=== PATIENT | male | born 1950 | race Caucasian/White ===

== ENCOUNTER 2016-12-26 07:02 | Day surgery (SDC) | payer MEDICARE, OTHER ==
[2016-12-21 16:46] VITALS: BMI 28.8
[2016-12-26] MEDS ORDERED: TETRACAINE 0.5% OPHTH SOLN 2 ML BOTTLE ONE (07:14)
[2016-12-26] MEDS ORDERED: BUPIVACAINE HCL/PF 0.5% (5MG/ML) 10 ML VIAL ONE (07:14)
[2016-12-26] MEDS ORDERED: BSS (NA/CA/MG/K) BALANCED SALT SOLUTION OPHTH SOLN 15 ML BOTTLE ONE (07:14)
[2016-12-26] MEDS ORDERED: BACITRACIN 3.5 GM OPTHALMIC OINT TUBE ONE (07:14)
[2016-12-26] MEDS ORDERED: LIDOCAINE 1%/EPI 1:100000 (20 ML MULTI DOSE VIAL) ONE (07:15)
[2016-12-26] MEDS ORDERED: POVIDONE-IODINE 5% OPHTHALMIC PREP 30 ML SOLUTION ONE (07:33)
[2016-12-26] MEDS ORDERED: MIDAZOLAM HCL 2 MG/2 ML SINGLE DOSE VIAL ONE (08:02)
[2016-12-26] MEDS ORDERED: SUCCINYLCHOLINE CHLORIDE 200 MG/10 ML VIAL ONE (08:14)
[2016-12-26] MEDS ORDERED: PROPOFOL 20 ML ONE ×2 (08:14)
[2016-12-26] MEDS ORDERED: ePHEDrine SULFATE 50 MG/1 ML AMPULE ONE (08:35)
[2016-12-26] MEDS ORDERED: ACETAMINOPHEN 500 MG TABLET (FP) PO PRN (09:10)
[2016-12-26] MEDS ORDERED: ONDANSETRON 4 MG/2 ML VIAL IVPUSH PRN (09:20)
[2016-12-26] MEDS ORDERED: PROMETHAZINE HCL 25 MG/1 ML VIAL IVPUSH PRN (09:20)
[2016-12-26] MEDS ORDERED: LACTATED RINGERS SOLUTION 1,000 ML IV SCH (09:30)
[2016-12-26 10:56] VITALS: TEMP 97.6
[2016-12-26] MEDS ORDERED: ACETAMINOPHEN 500 MG TABLET (FP) ONE (10:57)
[2016-12-26 11:45] VITALS: BP 128/76; PULSE 66
--- NOTE | 2016-12-26 12:15 | OP ---
DATE OF OPERATION: 12/26/2016 PREOPERATIVE DIAGNOSIS: Irritation, left eye with a floppy left upper eyelid. POSTOPERATIVE DIAGNOSIS: Irritation, left eye with a floppy left upper eyelid. PROCEDURE: 1. Full-thickness wedge resection, medial left upper eyelid with repair. 2. Lateral tarsal strip, left upper lid. SURGEON: Caio Hurtado MD ANESTHESIA: LMA. COMPLICATIONS: None. ESTIMATED BLOOD LOSS: 2-3 mL DESCRIPTION OF OPERATION: Patient brought to the operating room and placed on the operating room table. Vital signs were monitored by Anesthesia. Tetracaine was placed in both eyes. Timeout was performed. A vertical line was marked in the medial portion of the eyelid where the proposed wedge resection was going to be taken at at the lateral canthus, and a 50/50 mixture of 2% Xylocaine to 1:100,000 epinephrine and 0.5% Marcaine was then injected in the medial portion of the eyelid and at the lateral canthus down to periosteum, and the lateral third of the upper and lower lids for a total of 3 mL. Massage applied for hemostasis. Patient was prepped and draped in the usual sterile fashion, exposing both eyes. The left eye was closed. The following procedure was performed. A vertical incision was made through the full-thickness eyelid nasally at the junction of the nasal and next quarter of the eyelid, and then, the lid was overlapped and a wedge resection was performed, taking out a full-thickness pentagonal wedge. This was repaired with three 6-0 silk sutures, one through the anterior lash line, one through the posterior mucocutaneous junction in a far-far, near-near vertical mattress suture through the iverson line, creating a poker. These were lifted inferiorly and secured with a hemostat. Tarsal plate was then anastomosed with 3 partial-thickness 6-0 Vicryl sutures, anastomosing the tarsal plates. The lid was everted, demonstrating no penetration of the sutures. Antibiotic irrigation was used throughout the case. The muscle layer was closed with 6-0 chromic, and the skin was closed with interrupted 6-0 plain suture in plastics technique. The margins superonasally and secured to the skin with a single 6-0 silk suture. Attention was turned to the lateral canthus. A lateral canthal incision was made with a 15 blade through skin and subcutaneous tissue, and a lateral tarsal strip was developed at the lateral canthus. Double-arm 5-0 Prolene was used to secure the lateral tarsus, and this was reinforced with a 6-0 Vicryl lasso suture. The Prolene was then passed through the periosteum at the orbital rim at the junction with the inferior marga and lateral canthal tendon with appropriate tension on the eyelids so that there was a slight ability to distract the lid from globe but no more excess laxity. The Prolene was tied. The muscle layers were then closed with 5-0 chromic and the skin with interrupted 6-0 plain suture. Prior to closing the muscle and the skin and prior to tying the Prolene, the lateral canthal angles were formed with a buried 5-0 chromic through the iverson line of the upper lid and iverson line of the lower lid and with the knot being buried in the lateral canthus. The muscle and skin were then closed. Bacitracin ointment was placed on the lateral canthus and on the nasal eyelid, and the patient was taken to the recovery room in stable condition. Zuleima [id number]
--- NOTE | 2016-12-28 12:38 | PATH ---
Surgical Pathology Report Patient Name: LISA TANNER [facility]. Rec. #: [id number] /Age/Gender: 1950 (Age: 66) / M Account: [id number] Location: [facility] Taken: 12/26/2016 Received: 12/26/2016 Reported: 12/28/2016 Physicians: Caio Hurtado Specimen(s) Received SKIN AND TISSUE LEFT UPPER EYELID Clinical History Ectropion left upper eyelid Final Diagnosis LEFT UPPER EYELID, PARTIAL RESECTION: CONJUNCTIVAL TISSUE WITH CHRONIC INFLAMMATION, WITH ATTACHED SKELETAL MUSCLE AND SKIN WITH NON-SPECIFIC DERMAL EDEMA. Electronically Signed Garett Mcgovern M.D. Gross Description Received in formalin labeled "skin and tissue left upper eyelid," is a 0.8 x 0.6 cm asencio, irregular, unoriented skin shave. The epidermal surface displays a 0.5 x 0.4 cm asencio, polypoid lesion. This base is inked green and the specimen is serially sectioned. The specimen is entirely submitted in one cassette. 12/27/201612/27/2016
== END 2016-12-26 11:49 | disposition home or self-care (01) ==
LOC: FASU 07:02
PROVIDERS: ATTEND Ophthalmology
PROC: 08BP0ZZ Excision of Left Upper Eyelid, Open Approach (ICD-10-PCS; principal; 2016-12-26 08:26)
DX: H02.89 Other specified disorders of eyelid (principal); H57.8 Other specified disorders of eye and adnexa
CPT/HCPCS: 88304-TC; 94760

== ENCOUNTER 2017-08-15 10:10 | Day surgery (SDC) | payer MEDICARE, OTHER ==
[2017-08-14 19:42] VITALS: BMI 29.2
[2017-08-15 11:13] VITALS: TEMP 97.5
[2017-08-15 16:15] VITALS: BP 124/76; PULSE 62
--- NOTE | 2017-08-21 14:13 | PATH ---
Surgical Pathology Report Patient Name: LISA TANNER [facility]. Rec. #: [id number] /Age/Gender: 1950 (Age: 66) / M Account: [id number] Location: RADIOLOGY Taken: 08/15/2017 Received: 08/15/2017 Reported: 08/21/2017 Physicians: Freedom Dutton M.D. Fabrice Keith M.D. Specimen(s) Received LIVER BIOPSY Clinical History 66-year-old male with abnormal LFTs and elevated ??? Final Diagnosis Liver, core biopsy: Moderate steatohepatitis with diffuse steatosis (80%), pericellular inflammation, and ballooning degeneration of hepatocytes, see comment. Trichrome stain is understained and shows at least perivenular, pericellular, and periportal fibrosis with focal fibrous septa (stage 2/4). Reticulin stain shows an intact sinusoidal architecture. Iron stain is negative for siderosis. PAS with diastase stain is negative for owrqn-1-ghzxbiwolct globules. Negative for cholestasis, cholangitis/bile duct injury, granulomas, or malignancy. COMMENT: The biopsy shows steatohepatitis. Few portal tracts show a mild mixed inflammatory infiltrate comprised of mainly lymphocytes with few scattered plasma cells and eosinophils. The patient is noted to have an elevated anti-smooth muscle antibody. Significant lymphoplasmacytic interface activity typically seen in autoimmune hepatitis is not present in this sample. The portal inflammation may be due to the fatty liver disease or other causes such as drug/toxin-induced injury and less likely immune-mediated injury. The patient was noted to be previously on a statin. Statins are known to be associated with elevated autoantibodies such as anti-smooth muscle antibody. The overall findings in this biopsy sample do not favor a diagnosis of autoimmune hepatitis. Steatohepatitis may be associated with diabetes mellitus, metabolic syndromes, obesity, medications, alcohol use, etc. Clinical correlation recommended. Case discussed with Dr. Keith. Case sent for consultation to Dr. Marisol Navarro from [place], [place] ([id number]), the diagnosis above reflects her opinion. See complete report ([id number]) from [place], [place] for additional details. Electronically Signed Makenna Stearns M.D. Gross Description Received in formalin labeled "liver biopsy," are 2 asencio, cylindrical portions of soft tissue averaging 1.6 cm in length and 0.1 cm in diameter. The specimens are submitted in toto in one cassette. 08/15/201708/15/2017
== END 2017-08-15 16:00 | disposition home or self-care (01) ==
LOC: JRADIR 10:10
PROVIDERS: ATTEND Internal Medicine Gastroenterology
PROC: 0FB03ZX Excision of Liver, Percutaneous Approach, Diagnostic (ICD-10-PCS; principal; 2017-08-15)
DX: R94.5 Abnormal results of liver function studies (principal)
CPT/HCPCS: 76942-TC; 87899; 88305-TC; 88313-TC

== ENCOUNTER 2017-12-25 06:41 | Day surgery (SDC) | payer MEDICARE, OTHER ==
[2017-12-24 14:57] VITALS: BMI 29.2
[2017-12-25] MEDS ORDERED: PROPOFOL 20 ML ONE ×2 (07:25)
[2017-12-25] MEDS ORDERED: ROCURONIUM BROMIDE 50 MG/5 ML VIAL ONE (07:26)
[2017-12-25] MEDS ORDERED: MIDAZOLAM HCL 2 MG/2 ML SINGLE DOSE VIAL ONE (07:26)
[2017-12-25] MEDS ORDERED: SUCCINYLCHOLINE CHLORIDE 200 MG/10 ML VIAL ONE (07:29)
[2017-12-25] MEDS ORDERED: DEXAMETHASONE SOD PHOSPHATE 4 MG/1 ML VIAL ONE (07:29)
[2017-12-25] MEDS ORDERED: COCAINE HCL 4% TOPICAL SOLUTION 4 ML BOTTLE TP ONE ×2 (07:39→08:24)
[2017-12-25] MEDS ORDERED: BACITRACIN 15 GM TUBE TOPICAL OINTMENT ONE (07:41)
--- NOTE | 2017-12-25 08:03 | HP ---
Admitting History and Physical - Primary Care Physician PCP: Raymond - Admission Chief Complaint: Nasal blockage History of Present Illness: Nasal polyps refractory to meds, for surgery History Source: Patient, Medical Record Limitations to Obtaining History: No Limitations - Past Medical History Cardiovascular: Yes: Other (cholesterol) Gastrointestinal: Yes: GERD Renal/: Yes: BPH Musculoskeletal: Yes: Osteoarthritis - Smoking History Smoking history: Never smoked Have you smoked in the past 12 months: No - Alcohol/Substance Use Hx Alcohol Use: No Home Medications - Allergies Allergies/Adverse Reactions: Allergies Allergy/AdvReac Type Severity Reaction Status Date / Time oxycodone Allergy Verified 12/25/17 07:23 - Home Medications Home Medications: Ambulatory Orders Tamsulosin HCl 0.4 mg PO BID 04/27/15 Gabapentin 400 mg PO DAILY 12/26/16 Aspirin [ASA -] 81 mg PO DAILY 12/24/17 Atorvastatin Ca [Lipitor] 40 mg PO HS 12/24/17 Physical Examination Vital Signs: Vital Signs Temperature 98.2 F 12/25/17 07:22 Pulse Rate 67 12/25/17 07:22 Respiratory Rate 20 12/25/17 07:22 Blood Pressure 121/76 12/25/17 07:22 O2 Sat by Pulse Oximetry (%) 99 12/25/17 07:19 Constitutional: Yes: Well Nourished, No Distress Eyes: Yes: WNL, Conjunctiva Clear HENT: Yes: WNL, Atraumatic Neck: Yes: WNL, Supple Cardiovascular: Yes: WNL Respiratory: Yes: WNL Gastrointestinal: Yes: WNL Musculoskeletal: Yes: WNL Extremities: Yes: WNL Assessment/Plan Nasal polyp and chronic sinusitis for endoscopic sinus surgery
[2017-12-25] MEDS ORDERED: ceFAZolin SODIUM 1 GM VIAL ONE (08:24)
[2017-12-25] MEDS ORDERED: LIDOCAINE 1%/EPI 1:100000 (50 ML MULTI DOSE VIAL) INF ONE (08:24)
[2017-12-25] MEDS ORDERED: ePHEDrine SULFATE 50 MG/1 ML AMPULE ONE (08:27)
[2017-12-25] MEDS ORDERED: PHENYLEPHRINE HCL 10 MG/1 ML SINGLE DOSE VIAL ONE (08:34)
[2017-12-25] MEDS ORDERED: ceFAZolin SODIUM 1 GM VIAL IVPB ONE (08:36)
[2017-12-25] MEDS ORDERED: NEOSTIGMINE METHYLSULFATE 0.5 MG/ML - 10 ML MDV ONE (08:50)
[2017-12-25] MEDS ORDERED: GLYCOPYRROLATE 0.2 MG/1 ML VIAL ONE (08:50)
[2017-12-25] MEDS ORDERED: ACETAMINOPHEN 325 MG TABLET (FP) PO PRN (09:45)
[2017-12-25] MEDS ORDERED: LACTATED RINGERS SOLUTION 1,000 ML IV SCH (09:45)
[2017-12-25] MEDS ORDERED: oxyCODONE HCL 5 MG TABLET PO PRN (09:45)
[2017-12-25] MEDS ORDERED: ONDANSETRON 4 MG/2 ML VIAL IVPUSH PRN (09:45)
[2017-12-25 10:42] VITALS: TEMP 97.5
[2017-12-25] MEDS ORDERED: oxyCODONE HCL 5 MG TABLET ONE (11:09)
[2017-12-25] MEDS ORDERED: oxyCODONE HCL 5 MG TABLET PO ONE (11:10)
[2017-12-25 16:02] VITALS: BP 125/79; PULSE 90
--- NOTE | 2018-01-01 10:37 | PATH ---
Surgical Pathology Report Patient Name: LISA TANNER [facility]. Rec. #: [id number] /Age/Gender: 1950 (Age: 67) / M Account: [id number] Location: [facility] SURG[facility] Taken: 12/25/2017 Received: 12/25/2017 Reported: 01/01/2018 Physicians: Bienvenido Young M.D. Specimen(s) Received RIGHT NASAL POLYP Clinical History Chronic sinusitis, hypertrophic nasal turbinates Final Diagnosis NASAL POLYP, RIGHT, MAXILLARY ANTROSTOMY AND TISSUE REMOVAL: POLYPOID NASAL MUCOSA WITH ACUTE AND CHRONIC INFLAMMATION, AND HISTIOCYTIC PROLIFERATION. SEE COMMENT. Comment: Histologic sections show polypoid nasal mucosa with mixed acute and chronic inflammatory infiltrate and prominent histiocytic proliferation. Within these vacuolated histiocytes, there are suggestion of bacteria which appear gram (). PAS special stain show rare weak eosinophilic inclusions, but negative for fungal forms. Special stain for acid fast bacilli (AFB) stain is negative. S100 immunohistochemical stain utilized to evaluate this case. Findings are non-specific, and raise the possibility of a granulomatous process wherein Rhinoscleroma is a consideration. Suggest clinical and microbiology studies correlation. Immunohistochemical and special stains performed and interpreted at [facility]. Findings discussed with Dr. Richardson. Electronically Signed Clara Madrid M.D. Gross Description Received in formalin labeled "right nasal polyp," are 3 asencio, polypoid portions of soft tissue ranging from 2.0 x 0.4 x 0.1 cm to 2.3 x 0.9 x 0.2 cm. The specimens are submitted in toto in one cassette. 12/25/201712/25/2017
--- NOTE | 2018-01-01 12:08 | OP ---
DATE OF OPERATION: 12/25/2017 PREOPERATIVE DIAGNOSIS: Chronic sinusitis, nasal polyposis, turbinate hypertrophy. POSTOPERATIVE DIAGNOSIS: Chronic sinusitis, nasal polyposis, turbinate hypertrophy. INDICATIONS FOR THE PROCEDURE: This is a 67-year-old male with history of nasal polyposis refractory to medical treatment including antibiotics, steroids, and sprays. He has a fairly large polyp in the right nasal cavity noted on CT scan and physical examination. PROCEDURE: Bilateral inferior turbinate outfracture and cautery, right-sided anterior ethmoidectomy, maxillary antrostomy and tissue removal from the right side and left, balloon maxillary antrostomy and sinus navigation. SURGEON: Bienvenido Young MD ANESTHESIA: General. PROCEDURE FOLLOWS: Patient was brought to the operating room and placed under general anesthesia. Then, 4% cocaine pledgets were placed into both nostrils, and the nose decongested with the Cottonoids. Prior to the beginning of the injection, a [employer] Sinus Navigation Tracker was placed in the forehead and the tracker device was calibrated. An injection of 1% lidocaine with 1:100,000 epinephrine was injected into the lateral nasal wall, inferior turbinates, and middle turbinate, and partially into the polyp itself. The nose was examined using a 0-degree endoscope. The polyp appeared to originating from the middle meatus posteriorly to the choanae. There was some mild septal deviation, which did not obstruct the view of the middle meatus approach on either side. Using upbiting forceps, portions of the polyp were removed and sent to Pathology. The polyp was debrided using a straight Medtronic guided microdebrider. The polyp was followed into the middle meatus and its attachment on the ethmoid was removed using the microdebrider which entered the ethmoid bulla posteriorly but not past the ground lamella. The polyp was followed into the ostia. The polyp seemed to be based medially in the maxillary sinus. Using the microdebrider along the posterior portion of the ostia, the rest of the polyp was removed. The Cottonoid was then placed into the ethmoid cavity, and the other side was examined. The Medtronic-guided balloon was placed into the middle meatus and into the ostia after medializing the middle turbinate with a [place] elevator. Two separate balloon dilatations were performed of the left maxillary ostia. The inferior turbinates were then outfractured using a long needle speculum first on the left side, then, the right side, then, an Elmed bipolar turbinate cautery was used to cauterize the mucosa of the inferior turbinate on both sides, first on the left with 3 passes, and then, the right with 3 passes. The right maxillary ostia and area of the anterior ethmoid were packed with NasoPore standard packing with Bacitracin. The patient was then extubated in the operating room and brought to the recovery room in stable condition. Zuleima [id number]
== END 2017-12-25 14:30 | disposition home or self-care (01) ==
LOC: JASU-SURG 06:41
PROVIDERS: ATTEND Otolaryngology
PROC: 8E09XBZ Computer Assisted Procedure of Head and Neck Region (ICD-10-PCS; 2017-12-25)
PROC: 09DU4ZZ Extraction of Right Ethmoid Sinus, Percutaneous Endoscopic Approach (ICD-10-PCS; 2017-12-25)
PROC: 8E09XBZ Computer Assisted Procedure of Head and Neck Region (ICD-10-PCS; principal; 2017-12-25 08:00)
PROC: 099Q4ZZ Drainage of Right Maxillary Sinus, Percutaneous Endoscopic Approach (ICD-10-PCS; 2017-12-25 08:00)
DX: J32.8 Other chronic sinusitis (principal); J33.8 Other polyp of sinus; J34.3 Hypertrophy of nasal turbinates
CPT/HCPCS: 88304-TC; 88312-TC; 88342-TC; 94760

== ENCOUNTER 2019-04-30 07:07 | Day surgery (SDC) | payer OTHER ==
[2019-04-29 12:54] VITALS: BMI 29.6
[~2019-04-30 07:07] MED LIST: ACETAMINOPHEN 325 MG TABLET (FP) PO PRN
[2019-04-30] MEDS ORDERED: BUPIVACAINE HCL/PF 0.75% 10 ML VIAL ONE (07:26)
[2019-04-30] MEDS ORDERED: LIDOCAINE HCL/PF 2% SDV 5ML VIAL ONE ×2 (07:26→08:49)
[2019-04-30] MEDS ORDERED: LIDOCAINE HCL/PF 1% SDV 5ML VIAL ONE (07:26)
[2019-04-30] MEDS ORDERED: BSS (NA/CA/MG/K) BALANCED SALT SOLUTION OPHTH SOLN 15 ML BOTTLE ONE (07:27)
[2019-04-30] MEDS ORDERED: TROPICAMIDE 1% OPHTH SOLN 15 ML BOTTLE ONE (07:27)
[2019-04-30] MEDS ORDERED: PHENYLEPHRINE 2.5% OPHTH SOLN 15 ML BOTTLE ONE (07:27)
[2019-04-30] MEDS ORDERED: CYCLOPENTOLATE HCL 1% OPHTH SOLN 2 ML BOTTLE ONE (07:27)
[2019-04-30] MEDS ORDERED: KETOROLAC TROMETHAMINE 0.5% EYE DROP 1 DROP DROPS ONE (07:27)
[2019-04-30] MEDS ORDERED: OFLOXACIN 0.3% OPHTHALMIC SOLUTION 5 ML BOTTLE ONE (07:27)
[2019-04-30] MEDS: KETOROLAC TROMETHAMINE 0.5% EYE DROP 1 DROP DROPS OP SCH ×3 (07:40→08:10)
[2019-04-30] MEDS: OFLOXACIN 0.3% OPHTHALMIC SOLUTION 5 ML BOTTLE OP SCH ×3 (07:40→08:10)
[2019-04-30] MEDS: PHENYLEPHRINE 2.5% OPHTH SOLN 15 ML BOTTLE OP SCH ×3 (07:40→08:10)
[2019-04-30] MEDS: CYCLOPENTOLATE HCL 1% OPHTH SOLN 2 ML BOTTLE OP SCH ×3 (07:40→08:10)
[2019-04-30] MEDS: TROPICAMIDE 1% OPHTH SOLN 15 ML BOTTLE OP SCH ×3 (07:40→08:10)
[2019-04-30] MEDS ORDERED: MIDAZOLAM HCL 2 MG/2 ML SINGLE DOSE VIAL ONE (08:17)
[2019-04-30] MEDS ORDERED: PROPOFOL 20 ML ONE (08:38)
[2019-04-30] MEDS ORDERED: LIDOCAINE HCL 1% PRESERVATIVE FREE - 30ML VIAL NR ONE ×2 (09:10)
[2019-04-30] MEDS ORDERED: LIDOCAINE HCL/PF 2% SDV 5ML VIAL INF ONE (09:10)
[2019-04-30] MEDS ORDERED: BUPIVACAINE HCL/PF 0.75% 10 ML VIAL NR ONE (09:10)
[2019-04-30] MEDS ORDERED: CHONDROITIN SU A/HYALUR SOD 1 KIT IO ONE (09:11)
[2019-04-30] MEDS ORDERED: POVIDONE-IODINE 5% OPHTHALMIC PREP 30 ML SOLUTION OS ONE (09:14)
[2019-04-30] MEDS ORDERED: TRYPAN BLUE 0.5 ML DISP.SYRIN ONE (09:21)
[2019-04-30] MEDS ORDERED: BSS (NA/CA/MG/K) BALANCED SALT SOLUTION OPHTH SOLN 15 ML BOTTLE OS ONE (09:23)
[2019-04-30] MEDS ORDERED: EPINEPHrine/PF 1 MG/1 ML (1:1,000) AMPULE SQ ONE (09:29)
[2019-04-30 11:13] VITALS: TEMP 97.6
[2019-04-30 11:16] VITALS: BP 131/79; PULSE 65
--- NOTE | 2019-04-30 16:26 | SPEC ---
DATE OF OPERATION: DATE OF DICTATION: 04/30/2019 OPERATION: Phacoemulsification with posterior chamber intraocular lens implantation, left eye, lens used [id number], 19.0 Diopter, Serial No. [id number]. PREOPERATIVE DIAGNOSIS: Cataract, left eye. POSTOPERATIVE DIAGNOSIS: Cataract, left eye. SURGEON: Lilli Galan MD ANESTHESIA: Peribulbar/Modified Van Lint/MAC. COMPLICATIONS: None. PROCEDURE: The patient was brought to the operating room and correctly identified along with the operative site and a correct intraocular lens godinez. The patient was then given a peribulbar block under sedation with 5 mL of a 1:1 mixture of 2% Lidocaine and 0.5% Bupivacaine. Two to 3 mL of the same mixture was given as a modified Van Lint block. The eye was then prepped and draped in the usual sterile fashion including 5% Betadine solution in the conjunctival sac and an eyelid drape. An eyelid speculum was then placed into the eye. A paracentesis port was created. Viscoelastic was injected to inflate the anterior chamber. A temporal clear corneal wound was created. A continuous circular capsulorrhexis was performed. The nucleus was then hydro-dissected and removed phacoemulsification via the [id number] approach. The remaining cortical material was irrigated and aspirated from the eye. Viscoelastic was injected to inflate the capsular bag. The lens was injected into the capsular bag. Viscoelastic was then irrigated and aspirated from the eye. The intraocular lens was noted to be well centered and covered by the anterior capsular border. All wounds were found to be watertight. Topical Vancomycin was given. The eye patch and shield were placed. The patient was discharged from the operating room in stable condition. LILLI GALAN M.D. [id number]
== END 2019-04-30 11:00 | disposition home or self-care (01) ==
LOC: JASU-SURG 07:07
PROVIDERS: ATTEND Ophthalmology
PROC: 08RK3JZ Replacement of Left Lens with Synthetic Substitute, Percutaneous Approach (ICD-10-PCS; principal; 2019-04-30 09:00)
DX: H26.9 Unspecified cataract (principal)

== ENCOUNTER 2021-06-12 08:28 | Emergency (ER) | payer OTHER ==
[2021-06-12 08:40] VITALS: BP 125/82; PULSE 63; TEMP 97.5; BMI 28.1
[2021-06-12] MEDS ORDERED: SODIUM CHLORIDE 0.9% 500 ML INFUS.BAG IV ONE (09:26)
[2021-06-12 10:08] LABS: BASO % 0.4 % (0-2.0); EOS % 3.5 % (0-4.5); HEMATOCRIT 54.2 % (35.4-49); HEMOGLOBIN 18.7 GM/dL (11.7-16.9); MCHC 34.5 g/dl (32.0-35.9); MEAN CELL VOLUME 95.7 fl (80-96); MEAN PLT VOLUME 7.9 fl (7.5-11.1); MONO % 9.8 % (3.8-10.2); NEUT % 43.3 % (42.8-82.8); PLATELET COUNT 146 10^3/uL (134-434); RBC 5.66 M/mm3 (4.00-5.60); RDW 14.9 % (11.9-15.9); WHITE BLOOD COUNT 4.8 K/mm3 (4.0-10.0)
[2021-06-12 10:22] LABS: CALCIUM 9.6 mg/dL (8.5-10.1)
[2021-06-12 10:23] LABS: ALBUMIN 3.8 g/dl (3.4-5.0); BLOOD UREA NITROGEN 16.8 mg/dL (7-18)
[2021-06-12 10:26] LABS: CREATININE 1.1 mg/dL (0.55-1.3)
[2021-06-12 10:27] LABS: BILIRUBIN,TOTAL 1.3 mg/dL (0.2-1)
[2021-06-12 10:28] LABS: TOT PROT 7.3 g/dl (6.4-8.2)
== END 2021-06-12 12:26 | disposition home or self-care (01) ==
LOC: JERFT 08:28 → JER 08:28 → JERFT 12:26
PROC: 3E033GC Introduction of Other Therapeutic Substance into Peripheral Vein, Percutaneous Approach (ICD-10-PCS; principal; 2021-06-12)
DX: R21 Rash and other nonspecific skin eruption (principal)
CPT/HCPCS: 36415; 80053; 85025; 99284-25